=== PATIENT | male | born 1975 | race Hispanic/Latino ===

== ENCOUNTER 2018-05-09 05:49 | Emergency (ER) | payer OTHER ==
--- NOTE | 2018-05-09 07:40 | ER ---
Nurse's Notes [facility] Name: Fernando Lamas Age: 42 yrs Sex: Male : 1975 Arrival Date: 05/09/2018 Time: 05:51 Bed 7 Private MD: Diagnosis: Pain in left foot Presentation: 05/09 06:10 Presenting complaint: Patient states: left heel pain started Satur. pt stated ak1 increased intermittent pain today after working all day yesterday. pt stated his right foot "always aches" pt described pain in right foot as dull. Transition of care: patient was not received from another setting of care. Onset of symptoms is unknown. Risk Assessment: Do you want to hurt yourself or someone else? Patient reports no desire to harm self or others. Initial Sepsis Screen: Does the patient meet any 2 criteria? No. Patient's initial sepsis screen is negative. Does the patient have a suspected source of infection? No. Patient's initial sepsis screen is negative. Note pt with steady gait from ER lobby to ER7. Care prior to arrival: None. 06:10 Method Of Arrival: Ambulatory ak1 06:10 Acuity: IGGY 4 ak1 Triage Assessment: 06:13 General: Appears in no apparent distress. Behavior is calm, cooperative. Pain: ak1 Complains of pain in arch of left foot and heel of left foot. EENT: No signs and/or symptoms were reported regarding the EENT system. Neuro: No deficits noted. Cardiovascular: No deficits noted. Respiratory: No deficits noted. GI: No signs and/or symptoms were reported involving the gastrointestinal system. : No signs and/or symptoms were reported regarding the genitourinary system. Derm: No signs and/or symptoms reported regarding the dermatologic system. Musculoskeletal: Reports pain in arch of left foot and heel of left foot. Historical: - Allergies: 06:13 No Known Allergies; ak1 - Home Meds: 06:13 Lisinopril Oral [Active]; levothyroxine oral [Active]; ak1 - PMHx: 06:13 Hyperlipidemia; Hypertension; Hypothyroidism; ak1 - PSHx: 06:13 None; ak1 - Immunization history:: Adult Immunizations not up to date, Flu vaccine is not up to date. - Social history:: Smoking status: Patient/guardian denies using tobacco. - Ebola Screening: : No symptoms or risks identified at this time. Screenin:14 Abuse screen: Denies threats or abuse. Denies injuries from another. Nutritional ak1 screening: No deficits noted. Tuberculosis screening: No symptoms or risk factors identified. Fall Risk None identified. Assessment: 06:14 Reassessment: Patient appears in no apparent distress at this time. No changes from ak1 previously documented assessment. Patient is alert, oriented x 3, equal unlabored respirations, skin warm/dry/pink. see triage assessment. 06:43 Reassessment: pt waiting on Xray results. . ak1 07:13 Reassessment: report given to Melva and LINDSAY. ak1 07:15 Reassessment:. ak1 08:00 Reassessment: Patient appears in no apparent distress at this time. Patient and/or ph family updated on plan of care and expected duration. Pain level reassessed. Patient is alert, oriented x 3, equal unlabored respirations, skin warm/dry/pink. Pt d/c home. Vital Signs: 06:09 BP 131 / 97; Pulse 89; Resp 16; Temp 99.1; Pulse Ox 98% on R/A; Weight 120.2 kg (R); ak1 Height 5 ft. 8 in. (172.72 cm) (R); Pain 8/10; 06:43 BP 129 / 85; Pulse 76; Resp 16; Pulse Ox 96% on R/A; ak1 08:00 BP 127 / 82; Pulse 78; Resp 18; Temp 97.9; Pulse Ox 99% on R/A; ph 06:09 Body Mass Index 40.29 (120.20 kg, 172.72 cm) ak1 ED Course: 05:51 Patient arrived in ED. am2 06:07 Sami Mejia NP is PHCP. pm1 06:07 Yayo Bernabe MD is Attending Physician. pm1 06:09 Nadia Downing, CONCHITA is Primary Nurse. ak1 06:09 Arm band placed on Patient placed in an exam room, on a stretcher, on pulse oximetry, ak1 Patient notified of wait time. 06:11 Triage completed. ak1 06:14 Patient has correct armband on for positive identification. Bed in low position. Call ak1 light in reach. Side rails up X 1. Pulse ox on. NIBP on. 06:25 X-ray completed. Portable x-ray completed in exam room. Patient tolerated procedure sg4 well. 06:26 Foot Left 2 View XRAY In Process Unspecified. EDMS 08:00 No provider procedures requiring assistance completed. Patient did not have IV access ph during this emergency room visit. Administered Medications: No medications were administered Outcome: 07:39 Discharge ordered by MD. pm1 08:02 Patient left the ED. ph 08:02 Discharged to home ambulatory. ph 08:02 Condition: good 08:02 Discharge instructions given to patient, Instructed on discharge instructions, follow up and referral plans. medication usage, Demonstrated understanding of instructions, follow-up care, medications, Prescriptions given X 2. Signatures: Dispatcher [employer] EDMS Nadia Downing RN RN akJocelyn Russell RN RN Sami Hwang, CHLOE SAMPLE HAND pm1 Raquel Johnson am2 Nalini Collazo sg4
--- NOTE | 2018-05-09 07:40 | EDPHYS ---
Physician Documentation [facility] Name: Fernando Lamas Age: 42 yrs Sex: Male : 1975 Arrival Date: 05/09/2018 Time: 05:51 Bed 7 Private MD: ED Physician Yayo Bernabe HPI: 05/09 06:37 This 42 yrs old Male presents to ER via Ambulatory with complaints of Left pm1 Foot Pain. 06:37 The patient presents with pain, that is acute. The complaints affect the left heel. pm1 Context: The problem was sustained at home, resulted from an unknown cause, the patient can fully bear weight, the patient is able to ambulate, Problem is a result from a previous injury: No. Onset: The symptoms/episode began/occurred 3 day(s) ago. Modifying factors: the symptoms are aggravated by weight bearing. Modifying factors: The symptoms are alleviated by staying off foot. Associated signs and symptoms: Pertinent negatives calf tenderness, fever, nausea, numbness, swelling, tingling, vomiting. Treatment prior to arrival includes: no previous treatment. Severity of symptoms: in the emergency department the symptoms are actually worse. The patient has not experienced similar symptoms in the past. The patient has not recently seen a physician, the patient's primary care provider is Dr. Velasquez. Historical: - Allergies: 06:13 No Known Allergies; ak1 - Home Meds: 06:13 Lisinopril Oral [Active]; levothyroxine oral [Active]; ak1 - PMHx: 06:13 Hyperlipidemia; Hypertension; Hypothyroidism; ak1 - PSHx: 06:13 None; ak1 - Immunization history:: Adult Immunizations not up to date, Flu vaccine is not up to date. - Social history:: Smoking status: Patient/guardian denies using tobacco. - Ebola Screening: : No symptoms or risks identified at this time. ROS: 06:37 Constitutional: Negative for fever, chills, and weight loss, Eyes: Negative for injury, pm1 pain, redness, and discharge, ENT: Negative for injury, pain, and discharge, Neck: Negative for injury, pain, and swelling, Cardiovascular: Negative for chest pain, palpitations, and edema, Respiratory: Negative for shortness of breath, cough, wheezing, and pleuritic chest pain, Abdomen/GI: Negative for abdominal pain, nausea, vomiting, diarrhea, and constipation, Back: Negative for injury and pain, : Negative for injury, bleeding, discharge, and swelling. 06:37 Skin: Negative for injury, rash, and discoloration, Neuro: Negative for headache, weakness, numbness, tingling, and seizure. 06:37 MS/extremity: Positive for pain, of the left heel, Negative for deformity, erythema, swelling. Exam: 06:37 Constitutional: This is a well developed, well nourished patient who is awake, alert, pm1 and in no acute distress. Head/Face: Normocephalic, atraumatic. Chest/axilla: Normal chest wall appearance and motion. Nontender with no deformity. No lesions are appreciated. Cardiovascular: Regular rate and rhythm with a normal S1 and S2. No gallops, murmurs, or rubs. Normal PMI, no JVD. No pulse deficits. Respiratory: Lungs have equal breath sounds bilaterally, clear to auscultation and percussion. No rales, rhonchi or wheezes noted. No increased work of breathing, no retractions or nasal flaring. Abdomen/GI: Soft, non-tender, with normal bowel sounds. No distension or tympany. No guarding or rebound. No evidence of tenderness throughout. Back: No spinal tenderness. No costovertebral tenderness. Full range of motion. Skin: Warm, dry with normal turgor. Normal color with no rashes, no lesions, and no evidence of cellulitis. 06:37 Musculoskeletal/extremity: Extremities: grossly normal except: noted in the left heel: tenderness, There is no evidence of deformity, ecchymosis, erythema, swelling. 06:37 Neuro: Orientation: is normal, Motor: is normal, moves all fours, Sensation: is normal, no obvious gross deficits, Gait: is steady, at a normal pace, without difficulty. Vital Signs: 06:09 BP 131 / 97; Pulse 89; Resp 16; Temp 99.1; Pulse Ox 98% on R/A; Weight 120.2 kg (R); ak1 Height 5 ft. 8 in. (172.72 cm) (R); Pain 8/10; 06:43 BP 129 / 85; Pulse 76; Resp 16; Pulse Ox 96% on R/A; ak1 08:00 BP 127 / 82; Pulse 78; Resp 18; Temp 97.9; Pulse Ox 99% on R/A; ph 06:09 Body Mass Index 40.29 (120.20 kg, 172.72 cm) ak1 MDM: 06:10 Patient medically screened. pm1 06:40 Data reviewed: vital signs. Data interpreted: Pulse oximetry: on room air is 98 %. pm1 Interpretation: normal. 07:00 Differential diagnosis: Plantar fascitis, heel fracture, heel spur, callous, pm1 cellulitis, tinea pedis, gout. 07:04 Counseling: I had a detailed discussion with the patient and/or guardian regarding: the pm1 historical points, exam findings, and any diagnostic results supporting the discharge/admit diagnosis, radiology results, the need for outpatient follow up, to return to the emergency department if symptoms worsen or persist or if there are any questions or concerns that arise at home. 05/09 06:11 Order name: Foot Left 2 View XRAY pm1 Administered Medications: No medications were administered Disposition: 05/10 01:05 Co-signature as Attending Physician, Yayo Bernabe MD. rn Disposition: 05/09/18 07:39 Discharged to Home. Impression: Pain in left foot. - Condition is Stable. - Prescriptions for Naprosyn 500 mg Oral Tablet - take 1 tablet by ORAL route 2 times per day take with food; 30 tablet. Cyclobenzaprine 10 mg Oral Tablet - take 1 tablet by ORAL route every 8 hours As needed; 30 tablet. - Work release form, Medication Reconciliation Form, Thank You Letter, Antibiotic Education form. - Follow up: Emergency Department; When: As needed; Reason: Worsening of condition. Follow up: Private Physician; When: 2 - 3 days; Reason: Recheck today's complaints, Continuance of care, Re-evaluation by your physician. - Problem is new. - Symptoms have improved. Signatures: Dispatcher [employer] EDMS Yayo Bernabe MD MD rn Krenek, Amber RN RN ak1 Jocelyn Gaytan RN RN ph Marinas, Patrick, CHLOE HADOOP APPLICATION DEVELOPER pm1 Corrections: (The following items were deleted from the chart) 05/09 07:50 07:00 Differential diagnosis: Plantar fascitis, heel fracture, heel spur, callous, pm1 cellulitis, tinea pedis pm1 08:02 07:39 05/09/2018 07:39 Discharged to Home. Impression: Pain in left foot. Condition is ph Stable. Forms are Medication Reconciliation Form, Thank You Letter, Antibiotic Education, Prescription Opioid Use. Follow up: Emergency Department; When: As needed; Reason: Worsening of condition. Follow up: Private Physician; When: 2 - 3 days; Reason: Recheck today's complaints, Continuance of care, Re-evaluation by your physician. Problem is new. Symptoms have improved. pm1
[2018-05-09 08:08] VITALS: TEMP 99.1
[2018-05-09 08:09] VITALS: BP 129/85; O2SAT 96
--- NOTE | 2018-05-09 09:05 | RAD REPORT ---
EXAM DESCRIPTION: RAD - Foot Left 2 View - 05/09/2018 6:29 am CLINICAL HISTORY: PAIN COMPARISON: No comparisons FINDINGS: Prominent posterior calcaneal spur. No fracture or dislocation of the left foot seen.
== END 2018-05-09 08:02 | disposition home or self-care (01) ==
LOC: ER 05:49
DX: M79.672 Pain in left foot (principal); I10 Essential (primary) hypertension; E78.5 Hyperlipidemia, unspecified; E03.9 Hypothyroidism, unspecified
CPT/HCPCS: 99283

== ENCOUNTER 2018-07-04 10:39 | Emergency (ER) | payer OTHER ==
[2018-07-04 11:56] LABS: Absolute Lymphocytes (CBC) 2.2 K/uL (0.7-4.9); Absolute Monocytes 0.5 K/uL (0.1-1.3); Absolute Neutrophil 3.6 K/uL (1.8-8.0); Basophils % 0.3 % (0-1.3); Eosinophils % 1.4 % (0-4.4); Hematocrit 44.8 % (39.6-49.0); Lymphocytes % 34.1 % (15.3-44.8); MPV 9.3 fL (7.6-11.3); RBC Red Blood Cell Count 4.83 M/uL (4.33-5.43)
[2018-07-04 12:04] LABS: BUN Blood Urea Nitrogen 8 mg/dL (7-18); Bicarbonate 31 mmol/L (21-32); Glucose Level 102 mg/dL (74-106); Potassium 3.6 mmol/L (3.5-5.1); Sodium Level 142 mmol/L (136-145)
--- NOTE | 2018-07-04 12:04 | ER ---
Nurse's Notes [facility] Name: Fernando Lamas Age: 42 yrs Sex: Male : 1975 Arrival Date: 07/04/2018 Time: 10:44 Bed 6 Private MD: Kris Velasquez Diagnosis: Essential (primary) hypertension Presentation: 07/04 10:51 Presenting complaint: Patient states: "I have been feeling anxious and just not right hb the last few days, my blood pressure has been running high at home, 179-110/100.". Transition of care: patient was not received from another setting of care. Onset of symptoms was July 02, 2018. Risk Assessment: Do you want to hurt yourself or someone else? Patient reports no desire to harm self or others. Initial Sepsis Screen: Does the patient meet any 2 criteria? No. Patient's initial sepsis screen is negative. Does the patient have a suspected source of infection? No. Patient's initial sepsis screen is negative. Care prior to arrival: None. 10:51 Method Of Arrival: Ambulatory hb 10:51 Acuity: IGGY 3 hb Historical: - Allergies: 10:53 No Known Allergies; hb - Home Meds: 10:53 levothyroxine oral [Active]; lisinopril Oral [Active]; hb - PMHx: 10:53 Hyperlipidemia; Hypertension; Hypothyroidism; hb - PSHx: 10:53 None; hb - Immunization history:: Adult Immunizations up to date. - Social history:: Smoking status: Patient/guardian denies using tobacco. - Ebola Screening: : No symptoms or risks identified at this time. Screenin:00 Abuse screen: Denies threats or abuse. Nutritional screening: No deficits noted. aa5 Tuberculosis screening: No symptoms or risk factors identified. Fall Risk None identified. Assessment: 11:00 General: Appears comfortable, Behavior is calm, cooperative. Pain: Denies pain. Neuro: aa5 Level of Consciousness is awake, alert, obeys commands, Oriented to person, place, time, situation. Cardiovascular: Heart tones S1 S2 present Rhythm is regular. Respiratory: Airway is patent Respiratory effort is even, unlabored, Respiratory pattern is regular, symmetrical, Breath sounds are clear bilaterally. GI: Abdomen is round Bowel sounds present X 4 quads. Abd is soft and non tender X 4 quads. : No signs and/or symptoms were reported regarding the genitourinary system. EENT: No signs and/or symptoms were reported regarding the EENT system. Derm: Skin is pink, warm \\T\\ dry. Musculoskeletal: Range of motion: intact in all extremities. 12:20 Reassessment: Patient is alert, oriented x 3, equal unlabored respirations, skin aa5 warm/dry/pink. Vital Signs: 10:53 BP 146 / 86; Pulse 82; Resp 16; Temp 98.0(O); Pulse Ox 100% on R/A; Pain 0/10; hb 11:20 BP 132 / 92; Pulse 83; Resp 18 S; Pulse Ox 97% on R/A; aa5 12:18 BP 127 / 98; Pulse 83; Resp 16 S; Pulse Ox 99% on R/A; Pain 0/10; aa5 ED Course: 10:44 Patient arrived in ED. mr 10:45 Kris Velasquez MD is Private Physician. mr 10:52 Triage completed. hb 10:53 Arm band placed on. hb 10:55 Ciaran Smallwood MD is Attending Physician. gs 10:58 Melva Cruz, RN is Primary Nurse. aa5 11:00 Patient has correct armband on for positive identification. Placed in gown. Bed in low aa5 position. Call light in reach. Side rails up X2. 11:15 Inserted saline lock: 20 gauge in right forearm, using aseptic technique. IV inserted aa5 by Aj Shaikh RN. 11:29 No provider procedures requiring assistance completed. aa5 11:45 EKG done, by chief radiologic technologist. reviewed by Ciaran Smallwood MD. at1 12:03 Sonja Gamble MD is Referral Physician. gs 12:20 IV discontinued, intact, bleeding controlled, No redness/swelling at site. Pressure aa5 dressing applied. Administered Medications: No medications were administered Outcome: 12:03 Discharge ordered by . gs 12:21 Discharged to home ambulatory. aa5 12:21 Condition: stable 12:21 Discharge instructions given to patient, Instructed on discharge instructions, follow up and referral plans. Demonstrated understanding of instructions, follow-up care. 12:23 Patient left the ED. aa5 Signatures: Pastora Farmer mr Melva Cruz, RN RN aa5 Raquel Kan, aquacultural worker supervisor EKG Tat1 Mini Castorena RN RN Ciaran Smallwood MD MD gs Corrections: (The following items were deleted from the chart) 12:08 11:45 Inserted saline lock: 20 gauge in right forearm, using aseptic technique. IV aa5 inserted by Aj Shaikh RN aa5
--- NOTE | 2018-07-04 12:04 | EDPHYS ---
Physician Documentation [facility] Name: Fernando Lamas Age: 42 yrs Sex: Male : 1975 Arrival Date: 07/04/2018 Time: 10:44 Bed 6 Private MD: Kris Velasquez ED Physician Ciaran Smallwood HPI: 07/04 12:00 This 42 yrs old Male presents to ER via Ambulatory with complaints of High gs Blood Pressure. 12:00 Onset: The symptoms/episode began/occurred 1 week(s) ago. Modifying factors: The gs symptoms are aggravated by activity, The symptoms are alleviated by prescription meds. Associated signs and symptoms: Pertinent negatives: chest pain, dyspnea, lightheadedness, vomiting. Severity of symptoms: At its worst the blood pressure was moderate, in the emergency department the blood pressure is unchanged. The patient has experienced similar episodes in the past, a few times. Historical: - Allergies: 10:53 No Known Allergies; hb - Home Meds: 10:53 levothyroxine oral [Active]; lisinopril Oral [Active]; hb - PMHx: 10:53 Hyperlipidemia; Hypertension; Hypothyroidism; hb - PSHx: 10:53 None; hb - Immunization history:: Adult Immunizations up to date. - Social history:: Smoking status: Patient/guardian denies using tobacco. - Ebola Screening: : No symptoms or risks identified at this time. ROS: 12:00 All other systems are negative. gs Exam: 12:00 Head/Face: Normocephalic, atraumatic. Eyes: Pupils equal round and reactive to light, gs extra-ocular motions intact. Lids and lashes normal. Conjunctiva and sclera are non-icteric and not injected. Cornea within normal limits. Periorbital areas with no swelling, redness, or edema. ENT: Nares patent. No nasal discharge, no septal abnormalities noted. Tympanic membranes are normal and external auditory canals are clear. Oropharynx with no redness, swelling, or masses, exudates, or evidence of obstruction, uvula midline. Mucous membranes moist. Neck: Trachea midline, no thyromegaly or masses palpated, and no cervical lymphadenopathy. Supple, full range of motion without nuchal rigidity, or vertebral point tenderness. No Meningismus. Chest/axilla: Normal chest wall appearance and motion. Nontender with no deformity. No lesions are appreciated. Cardiovascular: Regular rate and rhythm with a normal S1 and S2. No gallops, murmurs, or rubs. Normal PMI, no JVD. No pulse deficits. Respiratory: Lungs have equal breath sounds bilaterally, clear to auscultation and percussion. No rales, rhonchi or wheezes noted. No increased work of breathing, no retractions or nasal flaring. Abdomen/GI: Soft, non-tender, with normal bowel sounds. No distension or tympany. No guarding or rebound. No evidence of tenderness throughout. Back: No spinal tenderness. No costovertebral tenderness. Full range of motion. Skin: Warm, dry with normal turgor. Normal color with no rashes, no lesions, and no evidence of cellulitis. MS/ Extremity: Pulses equal, no cyanosis. Neurovascular intact. Full, normal range of motion. Neuro: Awake and alert, GCS 15, oriented to person, place, time, and situation. Cranial nerves II-XII grossly intact. Motor strength 5/5 in all extremities. Sensory grossly intact. Cerebellar exam normal. Normal gait. 12:00 Constitutional: The patient appears alert, awake. 12:00 ECG was reviewed by the Attending Physician. Vital Signs: 10:53 BP 146 / 86; Pulse 82; Resp 16; Temp 98.0(O); Pulse Ox 100% on R/A; Pain 0/10; hb 11:20 BP 132 / 92; Pulse 83; Resp 18 S; Pulse Ox 97% on R/A; aa5 12:18 BP 127 / 98; Pulse 83; Resp 16 S; Pulse Ox 99% on R/A; Pain 0/10; aa5 MDM: 11:01 Patient medically screened. 12:00 Differential diagnosis: hypertensive crisis, Malignant HTN. Data reviewed: vital signs, nurses notes, lab test result(s), EKG. Counseling: I had a detailed discussion with the patient and/or guardian regarding: the historical points, exam findings, and any diagnostic results supporting the discharge/admit diagnosis, the need for outpatient follow up. Response to treatment: the patient's symptoms have markedly improved after treatment, and as a result, I will discharge patient. 07/04 11:01 Order name: Basic Metabolic Panel; Complete Time: 12:06 07/04 11:01 Order name: CBC with Diff; Complete Time: 12:05 07/04 11: Order name: EKG; Complete Time: 11: 07/04 11: Order name: Cardiac monitoring; Complete Time: 12: 07/04 11:01 Order name: EKG - Nurse/Tech; Complete Time: 11:04 07/04 11:01 Order name: IV Saline Lock; Complete Time: 12: 07/04 11: Order name: Labs collected and sent; Complete Time: 12: 07/04 11: Order name: O2 Per Protocol; Complete Time: 12: 07/04 11:01 Order name: O2 Sat Monitoring; Complete Time: 12: EC:00 Rate is 90 beats/min. Rhythm is regular. CO interval is normal. QRS interval is normal. gs T waves are Flattened. Clinical impression: NSR w/ Non-specific ST/T Changes. Interpreted by me. Administered Medications: No medications were administered Disposition: 07/04/18 12:03 Discharged to Home. Impression: Essential (primary) hypertension. - Condition is Stable. - Discharge Instructions: Hypertension. - Medication Reconciliation Form, Thank You Letter, Antibiotic Education, Prescription Opioid Use form. - Follow up: Sonja Gamble MD; When: 2 - 3 days; Reason: Re-evaluation by your physician. Signatures: Dispatcher [employer] EDMelva Smith RN RN aa5 Mini Castorena RN RN Ciaran Smallwood MD MD Corrections: (The following items were deleted from the chart) 12:23 12:03 07/04/2018 12:03 Discharged to Home. Impression: Essential (primary) aa5 hypertension. Condition is Stable. Forms are Medication Reconciliation Form, Thank You Letter, Antibiotic Education, Prescription Opioid Use. Follow up: Sonja Gamble; When: 2 - 3 days; Reason: Re-evaluation by your physician. gs
[2018-07-04 12:37] VITALS: TEMP 98
[2018-07-04 12:46] VITALS: BP 127/98; O2SAT 99
--- NOTE | 2018-07-04 16:57 | EKG ---
Test Date: 2018-07-04 Test Time: 11:16:07 Director Of Occupational Therapy: BUZZ MEASUREMENT RESULTS: Intervals: Rate: 90 NV: 168 QRSD: 92 QT: 358 QTc: 437 [place]: P: 29 NV: 168 QRS: 0 T: 44 INTERPRETIVE STATEMENTS: Normal sinus rhythm Possible Left atrial enlargement Cannot rule out Anterior infarct, age undetermined Abnormal ECG Compared to ECG 09/22/2015 08:54:31 Myocardial infarct finding now present Electronically Signed On 07-04-18 16:56:57 PHYSICALLY IMPAIRED TEACHER by Filipe Huff
== END 2018-07-04 12:23 | disposition home or self-care (01) ==
LOC: ER 10:39
DX: I10 Essential (primary) hypertension (principal); E78.5 Hyperlipidemia, unspecified; E03.9 Hypothyroidism, unspecified
CPT/HCPCS: 36415; 80048; 85025; 93005; 99283

== ENCOUNTER 2020-06-30 04:13 | Emergency (ER) | payer OTHER ==
[2020-06-30] MEDS ORDERED: MORPHINE 4 MG/ML SYR ONE (04:58)
[2020-06-30 04:59] LABS: Absolute Lymphocytes (CBC) 2.5 K/uL (0.7-4.9); Basophils % 0.5 % (0-1.3); Lymphocytes % 29.6 % (15.3-44.8); MPV 9.5 fL (7.6-11.3); RBC Red Blood Cell Count 4.78 M/uL (4.33-5.43)
[2020-06-30] MEDS ORDERED: NA CHLORIDE 0.9% 1,000 ML ONE (04:59)
[2020-06-30] MEDS ORDERED: FAMOTIDINE 20 MG/2 ML VIAL IV ONE (04:59)
[2020-06-30] MEDS ORDERED: ONDANSETRON 4 MG/2 ML VIAL ONE (04:59)
[2020-06-30 05:19] LABS: ALT/SGPT 28 U/L (12-78); AST/SGOT 15 U/L (15-37); Albumin 3.9 g/dL (3.4-5.0); Alkaline Phosphatase 59 U/L (45-117); BUN Blood Urea Nitrogen 12 mg/dL (7-18); Bicarbonate 29 mmol/L (21-32); Bilirubin Direct 0.1 mg/dL (0-0.2); Bilirubin Total 0.5 mg/dL (0.2-1.0); Glucose Level 235 mg/dL (74-106); Lipase 132 U/L (73-393); Potassium 3.6 mmol/L (3.5-5.1); Protein, Total 7.4 g/dL (6.4-8.2); Sodium Level 137 mmol/L (136-145); Troponin (Emerg Dept Use Only) < 0.02 ng/mL (0.0-0.045)
--- NOTE | 2020-06-30 06:52 | EDPHYS ---
Physician Documentation [facility] Name: Fernando Lamas Age: 44 yrs Sex: Male : 1975 Arrival Date: 06/30/2020 Time: 04:15 Bed 19 Private MD: EDWARD Physician Cameron Kathleen HPI: 06/30 05:05 This 44 yrs old Male presents to ER via Ambulatory with complaints of mh7 Abdominal Pain. 05:05 The patient presents with abdominal pain in the epigastric area. Onset: The mh7 symptoms/episode began/occurred today, at 01:00. The symptoms radiate to back. Associated signs and symptoms: Pertinent positives: nausea and vomiting, Pertinent negatives: anorexia, blood in stools, chest pain, constipation, diarrhea, dysuria, fever, headache, hematuria, palpitations, shortness of breath, testicular pain, vomiting blood. The symptoms are described as intermittent, vague, waxing/waning. Modifying factors: The symptoms are alleviated by nothing, the symptoms are aggravated by nothing. Severity of pain: At its worst the pain was moderate this morning, in the emergency department the pain is unchanged. Historical: - Allergies: 04:23 No Known Allergies; mg2 - Home Meds: 04:23 Metformin Oral [Active]; levothyroxine oral [Active]; lisinopril Oral [Active]; mg2 - PMHx: 04:23 Hyperlipidemia; Hypertension; Hypothyroidism; mg2 - PSHx: 04:23 None; mg2 - Immunization history:: Flu vaccine status is unknown. - Social history:: Smoking status: Patient denies any tobacco usage or history of. Patient/guardian denies using alcohol, street drugs, IV drugs. ROS: 05:05 Constitutional: Negative for fever, chills, and weight loss, Eyes: Negative for injury, mh7 pain, redness, and discharge, ENT: Negative for injury, pain, and discharge, Neck: Negative for injury, pain, and swelling, Cardiovascular: Negative for chest pain, palpitations, and edema, Respiratory: Negative for shortness of breath, cough, wheezing, and pleuritic chest pain, : Negative for injury, bleeding, discharge, and swelling, MS/Extremity: Negative for injury and deformity, Skin: Negative for injury, rash, and discoloration, Neuro: Negative for headache, weakness, numbness, tingling, and seizure, Psych: Negative for depression, anxiety, suicide ideation, homicidal ideation, and hallucinations, Allergy/Immunology: Negative for hives, rash, and allergies, Endocrine: Negative for neck swelling, polydipsia, polyuria, polyphagia, and marked weight changes, Hematologic/Lymphatic: Negative for swollen nodes, abnormal bleeding, and unusual bruising. Exam: 05:05 Constitutional: This is a well developed, well nourished patient who is awake, alert, mh7 and in no acute distress. Head/Face: Normocephalic, atraumatic. Eyes: Pupils equal round and reactive to light, extra-ocular motions intact. Lids and lashes normal. Conjunctiva and sclera are non-icteric and not injected. Cornea within normal limits. Periorbital areas with no swelling, redness, or edema. Neck: Trachea midline, no thyromegaly or masses palpated, and no cervical lymphadenopathy. Supple, full range of motion without nuchal rigidity, or vertebral point tenderness. No Meningismus. Chest/axilla: Normal chest wall appearance and motion. Nontender with no deformity. No lesions are appreciated. Cardiovascular: Regular rate and rhythm with a normal S1 and S2. No gallops, murmurs, or rubs. Normal PMI, no JVD. No pulse deficits. Respiratory: Lungs have equal breath sounds bilaterally, clear to auscultation and percussion. No rales, rhonchi or wheezes noted. No increased work of breathing, no retractions or nasal flaring. 05:05 Back: No spinal tenderness. No costovertebral tenderness. Full range of motion. Skin: Warm, dry with normal turgor. Normal color with no rashes, no lesions, and no evidence of cellulitis. MS/ Extremity: Pulses equal, no cyanosis. Neurovascular intact. Full, normal range of motion. Neuro: Awake and alert, GCS 15, oriented to person, place, time, and situation. Cranial nerves II-XII grossly intact. Motor strength 5/5 in all extremities. Sensory grossly intact. Cerebellar exam normal. Normal gait. Psych: Awake, alert, with orientation to person, place and time. Behavior, mood, and affect are within normal limits. 05:05 Abdomen/GI: Inspection: abdomen appears normal, obese Bowel sounds: normal, in all quadrants, Palpation: moderate abdominal tenderness, in the epigastric area, Rectal exam: the exam is deferred, because of patient request, Indicators: McBurney's point is not tender, Cordova's sign is negative, Rovsing's sign is negative, Obturator sign is negative, Psoas sign is negative, Liver: no appreciated palpable abnormalities, Hernia: not appreciated. Vital Signs: 04:23 BP 144 / 93; Pulse 73; Resp 18; Temp 98.3; Pulse Ox 100% on R/A; Weight 115.67 kg; mg2 Height 5 ft. 8 in. (172.72 cm); 04:23 Body Mass Index 38.77 (115.67 kg, 172.72 cm) mg2 MDM: 06:50 Differential diagnosis: bowel obstruction, cholecystitis, Cholelithiasis, mh7 diverticulitis, gastritis, gastroesophageal reflux disease, non-specific abd pain, pancreatitis, Peptic Ulcer Disease, Pyelonephritis, Ureterolithiasis, urinary tract infection. Data reviewed: vital signs, nurses notes, old medical records, lab test result(s), cardiac enzymes, CBC, electrolytes, urinalysis, EKG, radiologic studies, CT scan. Data interpreted: Pulse oximetry: on room air is 100 %. Interpretation: normal. Counseling: I had a detailed discussion with the patient and/or guardian regarding: the historical points, exam findings, and any diagnostic results supporting the discharge/admit diagnosis, the presence of at least one elevated blood pressure reading (>120/80) during this emergency department visit, lab results, radiology results, the need for outpatient follow up, a general surgeon, to return to the emergency department if symptoms worsen or persist or if there are any questions or concerns that arise at home. Response to treatment: the patient's symptoms have resolved after treatment, the patient's blood pressure is in an acceptable range, mental status has returned to baseline, the patient no longer shows bradycardia, the patient is not short of breath, the patient is not tachycardic, the patient's pain is gone, the patient's temperature has normalized, the patient is now symptom free. 06:52 Patient medically screened. [facility] 06/30 04:40 Order name: Basic Metabolic Panel; Complete Time: 05:35 [facility] 06/30 04:40 Order name: CBC with Diff; Complete Time: 05:18 [facility] 06/30 04:40 Order name: Hepatic Function; Complete Time: 05:35 7 06/30 04:40 Order name: Lipase; Complete Time: 05:35 06/30 04:40 Order name: Troponin (emerg Dept Use Only); Complete Time: 05:35 06/30 05:49 Order name: Urine Dipstick--Ancillary (enter results) tt3 06/30 04:40 Order name: IV Saline Lock; Complete Time: 04:45 06/30 04:40 Order name: Labs collected and sent; Complete Time: 04:45 06/30 04:40 Order name: Urine Dipstick-Ancillary (obtain specimen); Complete Time: 05:49 06/30 05:36 Order name: CT Abd/Pelvis - IV Contrast Only 06/30 04:40 Order name: EKG - Nurse/Tech; Complete Time: 04:44 mh7 Administered Medications: 04:44 Drug: NS 0.9% 1000 ml Route: IV; Rate: 1000 ml; Site: left antecubital; mg2 06:11 Follow up: Response: No adverse reaction; IV Status: Completed infusion; IV Intake: mg2 1000ml 04:44 Drug: morphine 4 mg Route: IVP; Site: left antecubital; mg2 06:11 Follow up: Response: No adverse reaction mg2 04:44 Drug: Zofran (Ondansetron) 4 mg Route: IVP; Site: left antecubital; mg2 06:11 Follow up: Response: No adverse reaction mg2 04:44 Drug: Pepcid 20 mg Route: IVP; Site: left antecubital; mg2 06:11 Follow up: Response: No adverse reaction mg2 Disposition: 06/30/20 06:52 Discharged to Home. Impression: Cholelithiasis. - Condition is Stable. - Discharge Instructions: Cholelithiasis, [id number]. - Prescriptions for Zofran ODT 4 mg Oral tablet,disintegrating - place 1 tablet by TRANSLINGUAL route every 8 hours As needed; 6 tablet. Bentyl 20 mg Oral Tablet - take 1 tablet by ORAL route every 6 hours As needed; 20 tablet. Tylenol- Codeine #3 300-30 mg Oral Tablet - take 2 tablets by ORAL route every 6 hours As needed; 15 tablet. - Medication Reconciliation Form, Thank You Letter, Antibiotic Education, Prescription Opioid Use form. - Follow up: Private Physician; When: 1 - 2 days; Reason: Worsening of condition, Recheck today's complaints, Continuance of care, Re-evaluation by your physician. Follow up: Anand Mccartney MD; When: 1 - 2 days; Reason: Worsening of condition, Recheck today's complaints. - Problem is new. - Symptoms have improved. Signatures: Dispatcher [employer] EDMS Tico Gonzales RN RN [facility] [place] Nargis Fay RN RN ll2 Cameron Kathleen MD MD mh7 Corrections: (The following items were deleted from the chart) 07:11 06:52 06/30/2020 06:52 Discharged to Home. Impression: Cholelithiasis. Condition is ll2 Stable. Forms are Medication Reconciliation Form, Thank You Letter, Antibiotic Education, Prescription Opioid Use. Follow up: Private Physician; When: 1 - 2 days; Reason: Worsening of condition, Recheck today's complaints, Continuance of care, Re-evaluation by your physician. Follow up: Anand Mccartney; When: 1 - 2 days; Reason: Worsening of condition, Recheck today's complaints. Problem is new. Symptoms have improved. mh7
--- NOTE | 2020-06-30 06:52 | ER ---
Nurse's Notes [facility] Name: Fernando Lamas Age: 44 yrs Sex: Male : 1975 Arrival Date: 06/30/2020 Time: 04:15 Bed 19 Private MD: Diagnosis: Cholelithiasis Presentation: 06/30 04:23 Chief complaint: Patient states: i have epigastric pain radiating to the back and mg2 vomiting since 1 am today. Coronavirus screen: Client denies travel out of the [place] in the last 14 days. At this time, the client does not indicate any symptoms associated with coronavirus-19. Ebola Screen: No symptoms or risks identified at this time. Initial Sepsis Screen: Does the patient meet any 2 criteria? No. Patient's initial sepsis screen is negative. Does the patient have a suspected source of infection? No. Patient's initial sepsis screen is negative. Risk Assessment: Do you want to hurt yourself or someone else? Patient reports no desire to harm self or others. Onset of symptoms was June 30, 2020. 04:23 Method Of Arrival: Ambulatory mg2 04:23 Acuity: IGGY 3 mg2 Triage Assessment: 04:45 General: Appears in no apparent distress. comfortable, Behavior is calm, cooperative. mg2 Pain: Complains of pain in abdomen Pain radiates to back Pain currently is 6 out of 10 on a pain scale. Quality of pain is described as aching, Pain began gradually, 3 hours ago. Is intermittent. EENT: No signs and/or symptoms were reported regarding the EENT system. Neuro: Level of Consciousness is awake, alert, obeys commands, Oriented to person, place, time, situation. Cardiovascular: Capillary refill < 3 seconds Patient's skin is warm and dry. Respiratory: Airway is patent Respiratory effort is even, unlabored, Respiratory pattern is regular, symmetrical. GI: Reports epigastric pain, vomiting. : No signs and/or symptoms were reported regarding the genitourinary system. Derm: Skin is intact, is healthy with good turgor, Skin is pink, warm \T\ dry. normal. Musculoskeletal: Circulation, motion, and sensation intact. Capillary refill < 3 seconds. Historical: - Allergies: 04:23 No Known Allergies; mg2 - Home Meds: :23 Metformin Oral [Active]; levothyroxine oral [Active]; lisinopril Oral [Active]; mg2 - PMHx: 04:23 Hyperlipidemia; Hypertension; Hypothyroidism; mg2 - PSHx: 04:23 None; mg2 - Immunization history:: Flu vaccine status is unknown. - Social history:: Smoking status: Patient denies any tobacco usage or history of. Patient/guardian denies using alcohol, street drugs, IV drugs. Screenin:46 Abuse screen: Denies threats or abuse. Denies injuries from another. Nutritional mg2 screening: No deficits noted. Tuberculosis screening: No symptoms or risk factors identified. Fall Risk IV access (20 points). Assessment: 04:46 General: see triage assessment. mg2 05:46 Reassessment: Patient and/or family updated on plan of care and expected duration. Pain ll2 level reassessed. Patient is alert, oriented x 3, equal unlabored respirations, skin warm/dry/pink. Vital Signs: 04:23 BP 144 / 93; Pulse 73; Resp 18; Temp 98.3; Pulse Ox 100% on R/A; Weight 115.67 kg; mg2 Height 5 ft. 8 in. (172.72 cm); 04:23 Body Mass Index 38.77 (115.67 kg, 172.72 cm) mg2 ED Course: 04:15 Patient arrived in ED. bp1 04:20 Cameron Kathleen MD is Attending Physician. 7 04:25 Triage completed. mg2 04:25 Arm band placed on. mg2 04:40 Inserted saline lock: 20 gauge in left antecubital area, using aseptic technique. Blood mg2 collected. 04:44 Tico Gonzales RN is Primary Nurse. mg2 04:46 Patient has correct armband on for positive identification. mg2 04:46 No provider procedures requiring assistance completed. mg2 06:25 CT Abd/Pelvis - IV Contrast Only In Process Unspecified. EDMS 06:51 Anand Mccartney MD is Referral Physician. mh7 Administered Medications: 04:44 Drug: NS 0.9% 1000 ml Route: IV; Rate: 1000 ml; Site: left antecubital; mg2 06:11 Follow up: Response: No adverse reaction; IV Status: Completed infusion; IV Intake: mg2 1000ml 04:44 Drug: morphine 4 mg Route: IVP; Site: left antecubital; mg2 06:11 Follow up: Response: No adverse reaction mg2 04:44 Drug: Zofran (Ondansetron) 4 mg Route: IVP; Site: left antecubital; mg2 06:11 Follow up: Response: No adverse reaction mg2 04:44 Drug: Pepcid 20 mg Route: IVP; Site: left antecubital; mg2 06:11 Follow up: Response: No adverse reaction mg2 Intake: 06:11 IV: 1000ml; Total: 1000ml. mg2 Outcome: 06:52 Discharge ordered by MD. angel 07:11 Patient left the ED. 2 Signatures: Dispatcher [employer] EDMS Tico Gonzales RN RN mg2 Nargis Fay RN RN 2 Airam Pena Maurice, MD MD mh7
[2020-06-30 07:03] LABS: Urine Blood NEGATIVE (NEG); Urine Glucose NEGATIVE (NEG); Urine Protein NEGATIVE (NEG); Urine Specific Gravity 1.015 (1.005-1.030)
[2020-06-30 07:16] VITALS: BP 144/93; TEMP 98.3; O2SAT 100
--- NOTE | 2020-06-30 12:14 | RAD REPORT ---
EXAM DESCRIPTION: CT ABDOMEN AND PELVIS WITH CONTRAST CLINICAL HISTORY: Abd pain;Nausea / vomiting COMPARISON: None Available. TECHNIQUE: CT of the abdomen and pelvis performed following IV administration of iodinated contras t. FINDINGS: Lung Bases: The visualized lung bases are clear. Bones: No destructive bone lesions identified. Abdomen: Liver: The liver has normal size and decreased density. No intrahepatic biliary dilatation. Gallbladder: Calcified gallstones. Spleen, Pancreas, and Adrenal Glands: The spleen, pancreas, and adrenal glands are unremarkable. Kidneys: Nonobstructing left nephrolithiasis. No obstructing ureteral calculi or hydronephrosis. Vasculature: The aorta and IVC have normal caliber and position. The portal vein is patent. The pro ximal visceral and renal arteries are patent. Stomach: The stomach and duodenum have normal course. Other: No free intraperitoneal air. No free fluid or lymphadenopathy. Tiny fat-containing umbilic al hernia. Pelvis: Bladder: Urinary bladder is unremarkable. Bowel: No dilated loops of large or small bowel. Appendix: Normal appendix. Pelvis: Prostate is not enlarged. Small fat-containing bilateral inguinal hernias. IMPRESSION: 1. Cholelithiasis without other CT evidence of acute cholecystitis. 2. Hepatic steatosis. 3. Nonobstructing right nephrolithiasis. This exam was performed according to our departmental dose-optimization program, which includes autom ated exposure control, adjustment of the mA and/or kV according to patient size and/or use of iterati ve reconstruction technique. Electronically signed by: Arpan Hernandez 06/30/2020 6:41 AM [employer] SERVICER Due to temporary technical issues with the PACS/Fluency reporting system, reports are being signed by the in house radiologist without review as a courtesy to ensure prompt reporting. The interpreting r adiologist is fully responsible for the content of the report.
== END 2020-06-30 07:11 | disposition home or self-care (01) ==
LOC: ER 04:13
DX: K80.20 Calculus of gallbladder without cholecystitis without obstruction (principal); E78.5 Hyperlipidemia, unspecified; E03.9 Hypothyroidism, unspecified; I10 Essential (primary) hypertension
CPT/HCPCS: 93005; 85025; 80048; 36415; 80076; 81003; 84484; 83690; 74177; Q9967; J7030; J2405; 96361; 96374; 96375; 99284